=== PATIENT | male | born 2000 | race Caucasian/White ===

== ENCOUNTER 2020-12-19 17:42 | Emergency (ER) | payer SELFPAY ==
[~2020-12-19] VITALS: Ht 182.9 cm; Wt 118.2 kg
--- NOTE | 2020-12-19 18:38 | REP ---
INDICATION: blunt trauma. COMPARISON: No comparison chest x-ray. TECHNIQUE: Portable upright AP chest radiograph. FINDINGS: The lungs are well inflated and free of infiltrate. Pleural angles are sharp. Heart size is normal. Pulmonary vasculature is not increased. EKG monitoring electrodes are present. IMPRESSION: No active disease. <Electronically signed by Ricardo Luo > 12/19/20 [id number]
[2020-12-19 18:44] LABS: BASO # 0.1 10^3/uL (0.0-0.2); BASO % 0.6 % (0.0-1.0); EOS # 0.3 10^3/uL (0.0-0.5); EOS % 2.4 % (0.0-3.0); HEMATOCRIT 46.8 % (42.0-52.0); HEMOGLOBIN 15.7 g/dl (13.5-17.5); LYMPH # 2.1 10^3/uL (1.5-5.0); LYMPH % 16.6 % (24.0-44.0); MEAN CORPUSCULAR HEMOGLOBIN 27.8 pg (27.0-33.0); MEAN CORPUSCULAR HGB CONC 33.5 g/dl (32.0-36.5); MONO # 0.7 10^3/uL (0.0-0.8); MONO % 5.4 % (2.0-8.0); NEUTROPHILS # 9.5 10^3/uL (1.5-8.5); NEUTROPHILS % 74.2 % (36.0-66.0); PLATELET COUNT, AUTOMATED 350 10^3/uL (150-450); RED BLOOD COUNT 5.64 10^6/uL (4.30-6.10); WHITE BLOOD COUNT 12.7 10^3/uL (4.0-10.0)
[2020-12-19] MEDS ORDERED: ISOVUE-370 76% 100ML VIAL As Ordered ONE (18:48)
[2020-12-19 18:59] LABS: ALBUMIN 4.3 GM/DL (3.2-5.2); ALT/SGPT 36 U/L (12-78); BILIRUBIN,DIRECT 0.2 MG/DL (0.0-0.2); BILIRUBIN,TOTAL 0.7 MG/DL (0.2-1.0); CK-MB VALUE MASS < 1.0 NG/ML (<3.6); CPK CREATINE PHOSPHOKINASE 169 U/L (39-308); LIPASE 50 U/L (73-393); MB/CK RELATIVE INDEX 0.59 (< OR =4); TOTAL PROTEIN 7.4 GM/DL (6.4-8.2); TROPONIN I < 0.02 NG/ML (< 0.10)
--- NOTE | 2020-12-19 20:15 | REPVR ---
PROCEDURE INFORMATION: Exam: CT Chest With Contrast; Diagnostic Exam date and time: 12/19/2020 7:32 PM Age: 20 years old Clinical indication: Injury or trauma; Other: Crush injury; Crushing; Additional info: Chest pain S/P crush injury TECHNIQUE: Imaging protocol: Diagnostic computed tomography of the chest with contrast. 3D rendering (Not supervised by radiologist): MIP and/or 3D reconstructed images were created by the technologist. Radiation optimization: All CT scans at this facility use at least one of these dose optimization techniques: automated exposure control; mA and/or kV adjustment per patient size (includes targeted exams where dose is matched to clinical indication); or iterative reconstruction. Contrast material: ISOVUE 370; Contrast volume: 75 ml; Contrast route: INTRAVENOUS (IV); COMPARISON: CR PORTABLE CHEST X-RAY 12/19/2020 5:58 PM FINDINGS: Thyroid: Subcentimeter low-density lesion left lobe of the thyroid. Lungs: Unremarkable. No consolidation. No masses. Pleural spaces: Unremarkable. No pneumothorax. No pleural effusion. Heart: Unremarkable. No cardiomegaly. No pericardial effusion. Mediastinal space: Small sliding hiatal hernia. Aorta: Unremarkable. No aortic aneurysm. Lymph nodes: Unremarkable. No enlarged lymph nodes. Liver: The liver is low in density. Bones/joints: Mild dextroscoliosis thoracic spine; There is a nondisplaced incomplete fracture of the body of the sternum at the sternomanubrial junction. The fracture line is on the anterior side of the sternum. Soft tissues: Unremarkable. Other findings: There is motion artifact in the upper abdominal images. IMPRESSION: 1. Nondisplaced incomplete fracture of the body of the sternum 2. Hepatic steatosis. 3. Small sliding hiatal hernia. 4. A subcentimeter left thyroid nodule.No follow-up is recommended. COMMENTS: Consistent with the [employer]'s Incidental Findings Committee white paper (J Am Pastor Radiol 2015): In patients under 35 years old with an incidental thyroid nodule equal to or greater than [address], MRI or extrathyroidal US, further evaluation with dedicated thyroid US is recommended for patients with normal life expectancy and without comorbidities. For smaller nodules without suspicious features, no further evaluation or follow up is recommended. Electronically signed by: Kate Molina On 12/19/2020 20:15:35 PM
[2020-12-19] MEDS ORDERED: NORCO 5/325MG TABLET (BULK FOR ED) PO ONE (20:50)
[2020-12-19] MEDS ORDERED: HYDR-3713 PO (21:06)
--- NOTE | 2020-12-19 21:19 | REPVR ---
PROCEDURE INFORMATION: Exam: XR Left Femur Exam date and time: 12/19/2020 8:38 PM Age: 20 years old Clinical indication: Other: Crush; Additional info: Crush injury TECHNIQUE: Imaging protocol: XR Left femur. Views: 2 views. COMPARISON: No relevant prior studies available. FINDINGS: Bones/joints: No acute fracture. Lucent lesion in the distal femur with sclerotic margins and cortical/subcortical in location. No periosteal new bone formation. Soft tissues: Contrast present in the bladder. IMPRESSION: No acute findings. 2. Lucent lesion in the distal femur. The appearance suggests benign etiology such as healed fibrous cortical defect Electronically signed by: Kate Molina On 12/19/2020 21:19:04 PM
[2020-12-19 21:42] VITALS: BP 116/56
--- NOTE | 2020-12-20 06:38 | ECGEPIP ---
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
== END 2020-12-19 21:49 | disposition home or self-care (01) ==
LOC: M ED 17:42 → EDBD 17:42 → M ED 21:49
DX: S22.22XA Fracture of body of sternum, initial encounter for closed fracture (principal); S70.12XA Contusion of left thigh, initial encounter; W20.8XXA Other cause of strike by thrown, projected or falling object, initial encounter; Y92.9 Unspecified place or not applicable; Y93.9 Activity, unspecified; Y99.0 Civilian activity done for income or pay; M54.9 Dorsalgia, unspecified
CPT/HCPCS: 36415; 71045; 71260; 73552; 80047; 80076; 82550; 82553; 83690; 84484; 85025; 93005; 93041; 99285; Q9967